=== PATIENT | male | born 1955 | race Caucasian/White ===

== ENCOUNTER → 2023-09-21 11:46 | Outpatient (BNVA) | payer MEDICARE, SELFPAY | PROVIDERS: Visit Provider Nurse Practitioner Family | DX: I10 Essential (primary) hypertension (principal) | CPT/HCPCS: 80053; 80061; 84443; 85025; G0103 ==

== ENCOUNTER → 2023-11-30 14:06 | Outpatient (BNVA) | payer MEDICARE, SELFPAY | PROVIDERS: Visit Provider Internal Medicine | DX: I49.8 Other specified cardiac arrhythmias (principal); I48.91 Unspecified atrial fibrillation | CPT/HCPCS: 93005 ==